=== PATIENT | female | born 1970 | race Caucasian/White ===

== ENCOUNTER → 2020-07-07 | Outpatient (CLI) | payer BC ==
[~2020-07-07] MED LIST: HYDROCORTISONE28 G1 TP; NEOM28OI31 TP
--- NOTE | 2020-07-07 10:29 | KCIC ---
STUDY: MRI of the left knee without contrast INDICATION: Left knee pain. Reported injury in December 2018. COMPARISON: None. TECHNIQUE: Multiplanar MR imaging of the left knee performed without the use of intravenous or intra-articular contrast. FINDINGS: Menisci: Complex tear of the medial meniscus extending from the anterior aspect of the body segment through the posterior horn. The dominant tear pattern is horizontal and undersurface oblique and there appears to be a small amount of meniscal tissue extending downward into the meniscotibial recess, images 14 series 8 and 21 series 6. The root insertions remain intact. Unremarkable lateral meniscus. Cruciate ligaments: Intact. Collateral ligaments: Intact. Tendons: Intact. Cartilage: Patellofemoral: Several areas of high-grade/full-thickness chondral loss involving the patella mainly at and extending along both sides of the median ridge. No high-grade chondral defect of the trochlea is apparent noting pulsation artifact on the axial T2 sequence. Lateral compartment: Intact. Medial compartment: Mild superficial chondrosis along the periphery of the weightbearing aspect. No high-grade or full-thickness defect seen throughout the medial compartment. Bones: No acute fracture or focally aggressive marrow signal abnormality. Patellar subchondral edema/cystic change relating to overlying chondral loss. Miscellaneous: Small Azul's cyst. No significant knee joint effusion. IMPRESSION: 1. Complex tear of the medial meniscus involving the body segment and posterior horn, as detailed above. The lateral meniscus is intact as are the cruciate and collateral ligaments. 2. High-grade/full-thickness chondral defects centered along the patellar median ridge. No high-grade chondrosis at the medial or lateral femorotibial compartments. 3. Small Azul's cyst. Electronically signed by: SHELIA HARDWICK MD (07/07/2020 10:26 AM) [place] [id number]
--- NOTE | 2020-07-07 10:46 | KCIC ---
Study: MRI of the right hip without contrast INDICATION: Right hip pain. COMPARISON: Right hip radiographs 06/16/2020 TECHNIQUE: Multiplanar MR imaging of the right hip performed without the use of intravenous or intra-articular contrast. FINDINGS: Bones/hip: No acute fracture or focally aggressive marrow signal abnormality. Only appreciated on the full [id number] coronal sequence are degenerative changes at the pubic symphysis with reactive marrow edema involving the pubic body on the left more so than right. Mild chronic enthesopathy at the ischial tuberosity. Normal femoral head/neck offset. Labrum/cartilage: Degenerative tearing of the labrum from anterior/superior to superior. No full-thickness chondral defect is identified. Ligamentum teres: Intact. Greater trochanteric bursa: Within normal limits. Musculotendinous: Intact gluteus medius and minimus tendons. Intact iliopsoas, rectus femoris and common hamstrings. Incidental note made of common hamstring origin tendinosis and a partial tear on the left. Only mild common hamstring origin tendinosis on the right. No localized muscular edema. Mild gluteus minimus fatty infiltration. Miscellaneous: No edema or other abnormality seen along the right sciatic nerve bundle. No significant joint effusion on either side. No pericapsular edema. IMPRESSION: 1. Degenerative tearing of the labrum extending from anterior/superior to superior. No full-thickness chondral defect is identified or other findings of significant arthrosis at the right hip. 2. No acute tendon tear or advanced tendinosis surrounding the right hip. Incidental note made of common hamstring origin tendinosis and a partial tear on the left. 3. Unremarkable sciatic nerve bundle on the right. 4. Mild/moderate degenerative changes at the pubic symphysis. Electronically signed by: SHELIA HARDWICK MD (07/07/2020 10:43 AM) [id number]
== END ==
LOC: KCIC MRI 07:56
PROVIDERS: ATTEND Family Medicine
DX: M16.11 Unilateral primary osteoarthritis, right hip (principal); M71.22 Synovial cyst of popliteal space [Baker], left knee
CPT/HCPCS: 73721

== ENCOUNTER 2020-10-03 06:06 | Day surgery (SDC) | payer BC ==
[~2020-10-03] VITALS: Ht 181.6 cm; Wt 86.2 kg
[~2020-10-03 06:06] MED LIST changes: +ASPI-621 PO; +CALC-109 PO; +CLOB15CR TP; +GARL600T PO; +HYDROmorphone 2 MG/ML VIAL IVP PRN; +IV RINGERS,LACTATED 1000ML 1,000 ML IV SCH; +MAGN400T5 PO; +MORPHINE SULFATE 2 MG/ML VIAL. IVP PRN; +MULT-445 PO; +NAPR220T70 PO; +OMEG1CAP38 PO; +PROCHLORPERAZINE 10 MG/2 ML VIAL. IVP PRN; +TURM500C4 PO; +fentaNYL PF VIAL 100 MCG/2 ML VIAL IVP PRN
[2020-10-03 07:07] LABS: BASO % 1 % (0-3); CALCIUM 8.7 mg/dL (8.5-10.1); CREATININE 0.7 mg/dL (0.6-1.0); EOS # 0.1 x10^3/uL (0.0-0.7); EOS % 2 % (0-3); GFR 88.6; HEMATOCRIT 40.6 % (36.0-47.0); HEMOGLOBIN 13.3 g/dL (12.0-15.5); LYMPH # 1.1 x10^3/uL (1.0-4.8); LYMPH % 23 % (24-48); MEAN CORPUSCULAR HEMOGLOBIN 31 pg (25-35); MEAN CORPUSCULAR HGB CONC 33 g/dL (31-37); MEAN CORPUSCULAR VOLUME 94 fL (79-100); MONO # 0.2 x10^3/uL (0.0-1.1); MONO % 5 % (0-9); NEUT # 3.3 x10^3/uL (1.8-7.7); NEUT % 70 % (31-73); PLATELET COUNT 286 x10^3/uL (140-400); POTASSIUM 3.7 mmol/L (3.5-5.1); RED BLOOD COUNT 4.33 x10^6/uL (3.50-5.40); RED CELL DISTRIBUTION WIDTH 13.8 % (11.5-14.5); WHITE BLOOD COUNT 4.8 x10^3/uL (4.0-11.0)
[2020-10-03] MEDS ORDERED: BUPIVACAINE MPF 0.5% 30 ML VIAL. ONE (07:14)
[2020-10-03] MEDS ORDERED: BUPIVACAINE-EPI 0.5% 30 ML VIAL KIT. ONE (07:14)
[2020-10-03] MEDS ORDERED: PROPOFOL 10 MG/ML (20ML) VIAL. IV ONE (07:29)
[2020-10-03] MEDS ORDERED: LIDOCAINE 2% PF 5 ML VIAL. ONE (07:29)
[2020-10-03] MEDS ORDERED: fentaNYL PF VIAL 100 MCG/2 ML VIAL ONE ×2 (07:30→09:15)
[2020-10-03] MEDS ORDERED: MIDAZOLAM HCL/PF 2 MG/2 ML VIAL. ONE (07:30)
[2020-10-03] MEDS ORDERED: HYDR-2761 PO (07:45)
--- NOTE | 2020-10-03 07:47 | DISCH ---
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 Siegel 10 days JANICE SIEGEL MD Oct 03, 2020 07:47
[2020-10-03] MEDS ORDERED: ONDANSETRON PF 4 MG/2 ML VIAL. ONE (08:13)
[2020-10-03] MEDS ORDERED: DEXAMETHASONE SOD PHOS 4 MG/ML VIAL ONE (08:13)
[2020-10-03] MEDS ORDERED: SEVOFLURANE 61 TO 120 MINUTES. IH ONE (08:13)
[2020-10-03] MEDS ORDERED: HYDROcodone/APAP 5/325MG 1 TAB TABLET PO ONE (09:45)
[2020-10-03 10:21] VITALS: BP 131/68
--- NOTE | 2020-10-03 10:24 | PDOC4 ---
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 Operative procedure: Left knee arthroscopy partial medial meniscectomy and chondroplasty patella Surgeon: Christal Senior [employer]ensions Administrator: Alphonse pinzon Anesthesia: General Estimated blood loss: 5 cc Complications: None Operative indications: Please see my preoperative orthopedic clinic evaluation for detailed operative indications and note that we had previously discussed structure and function of the meniscus the poor blood supply to the inner portion of the meniscus precluding healing and the findings of MRI and mechanical concerns with the displaced tear causing mechanical symptoms and potentially additional cartilage damage in the knee. We discussed risk benefits postoperative course of the arthroscopy procedure including the possibility of continued pain nerve or blood vessel damage infection medical or other anesthetic complications among others and specifically the fact that I cannot do anything symptomatically about degenerative change which has to be treated symptomatically on an ongoing basis all her questions were answered she wishes to proceed with surgical evaluation and treatment Operative text: Patient was identified procedure verified patient placed in the supine position on the operating table. After adequate amounts of general anesthesia were administered the left lower extremity was prepped and draped in standard sterile fashion with a thigh tourniquet. After timeout was performed patient procedure identified and verified the left lower extremity was exsanguinated by Esmarch bandage tourniquet inflated to 250 mmHg a lateral portal was established medial portal established using spinal needle localization and the knee joint was systematically examined. She was found to have a displaceable tear posterior horn of the medial meniscus which was trimmed back to stable tissue using arthroscopic punch and shaver. ACL was probed and found to be intact as was the lateral meniscus. No loose bodies noted in the gutters or suprapatellar pouch although she did have grade III chondromalacia over the central facet of the patella which was trimmed back to stable tissue using arthroscopic shaver. The joint was then drained of arthroscopic fluid, portals and fat pad area were injected with 20 cc of half percent Marcaine with epinephrine portals closed with nylon suture sterile soft dressings were applied patient was returned to recovery room in stable condition having tolerated procedure well. Alphonse pinzon present for the procedure and assisted in patient prepping draping instrument positioning closure and dressings JANICE MOREJON MD Oct 03, 2020 10:24
== END 2020-10-03 10:55 | disposition home or self-care (01) ==
LOC: SURG 06:06
PROVIDERS: ATTEND Orthopaedic Surgery
DX: S83.232A Complex tear of medial meniscus, current injury, left knee, initial encounter (principal); M22.42 Chondromalacia patellae, left knee; M19.90 Unspecified osteoarthritis, unspecified site; Z79.899 Other long term (current) drug therapy; Z98.890 Other specified postprocedural states; Z79.82 Long term (current) use of aspirin; Z72.89 Other problems related to lifestyle; Z20.822 Contact with and (suspected) exposure to COVID-19; X58.XXXA Exposure to other specified factors, initial encounter; Y93.89 Activity, other specified; Y92.89 Other specified places as the place of occurrence of the external cause; Y99.8 Other external cause status
CPT/HCPCS: 29881; 36415; 80048; 85025; 87426; C9803; J0690; J1100; J2405; J2704; J3010; U0003; J2250; J3490